=== PATIENT | female | born 1995 | race Caucasian/White ===

== ENCOUNTER → 2017-02-15 | Outpatient (CLI) | payer OTHER, BC ==
--- NOTE | 2017-02-15 17:03 | REP ---
Clinical: Trauma. Contusion. Technique: AP, lateral, bilateral oblique and sunrise views left knee . Findings: The osseous structures and joint spaces are intact and normal. There is no evidence for acute fracture or dislocation. No joint effusion is appreciated. Surrounding soft tissues are unremarkable. No subcutaneous emphysema or radiodense foreign body. Impression: No acute fracture or dislocation. Signed by Perry Oneal MD 02/15/2017 04:55 P
== END ==
LOC: M LRY 16:18
PROVIDERS: ATTEND Physician Assistant Medical
DX: S80.02XA Contusion of left knee, initial encounter (principal); X58.XXXA Exposure to other specified factors, initial encounter; Y93.9 Activity, unspecified; Y92.9 Unspecified place or not applicable; Y99.8 Other external cause status

== ENCOUNTER → 2017-07-03 | Outpatient (REF) | payer BC, OTHER | LOC: M SFHCLERA 20:03 | PROVIDERS: ATTEND Nurse Practitioner Family | DX: R42 Dizziness and giddiness (principal) ==

== ENCOUNTER → 2017-09-22 | Outpatient (REF) | payer BC ==
[2017-09-23 12:43] LABS: CHLAMYDIA DNA AMPLIFICATION POSITIVE (NEGATIVE); GC DNA AMPLIFICATION NEGATIVE (NEGATIVE)
== END ==
LOC: M SFHCLERA 20:19
DX: R10.9 Unspecified abdominal pain (principal)
CPT/HCPCS: 87086

== ENCOUNTER → 2018-02-25 | Outpatient (CLI) | payer BC ==
[2018-02-25 14:54] LABS: PROLACTIN 9.6 NG/ML
[2018-02-25 14:55] LABS: ESTIMATED AVERAGE GLUCOSE 77 MG/DL (60-110); HEMOGLOBIN A1c 4.3 %
[2018-02-25 19:15] LABS: ANION GAP 10 MEQ/L (8-16); BLOOD UREA NITROGEN 13 MG/DL (7-18); CALCIUM LEVEL 8.8 MG/DL (8.5-10.1); CARBON DIOXIDE LEVEL 25 MEQ/L (21-32); CHLORIDE LEVEL 107 MEQ/L (98-107); CREATININE FOR GFR 0.92 MG/DL (0.55-1.30); GLOMERULAR FILTRATION RATE > 60.0 (>60); GLUCOSE, FASTING 77 MG/DL (70-100); POTASSIUM SERUM 4.1 MEQ/L (3.5-5.1); SODIUM LEVEL 142 MEQ/L (136-145)
[2018-02-27 00:06] LABS: TESTOSTERONE FREE (DIRECT) 2.4 pg/mL (0.0-4.2)
== END ==
LOC: M RAD 11:50
DX: N92.1 Excessive and frequent menstruation with irregular cycle (principal); Z97.5 Presence of (intrauterine) contraceptive device
CPT/HCPCS: 76856

== ENCOUNTER → 2018-05-24 | Outpatient (REF) | payer BC | LOC: M SFHCLERA 19:33 | DX: J02.9 Acute pharyngitis, unspecified (principal) ==

== ENCOUNTER 2018-07-27 22:34 | Emergency (ER) | payer BC ==
[2018-07-27] MEDS: hydrOXYzine 25 MG TAB PO (23:26)
== END 2018-07-28 00:27 | disposition home or self-care (01) ==
LOC: M ED 22:34
DX: F43.0 Acute stress reaction (principal); F41.1 Generalized anxiety disorder; F41.0 Panic disorder [episodic paroxysmal anxiety]; Z72.0 Tobacco use; Z88.2 Allergy status to sulfonamides
CPT/HCPCS: 99284

== ENCOUNTER → 2018-08-19 | Outpatient (REF) | payer BC ==
[~2018-08-19] MED LIST: HYDR-3363 PO
== END ==
LOC: M SFHCLERA 14:02
PROVIDERS: ATTEND Physician Assistant
DX: J02.9 Acute pharyngitis, unspecified (principal)

== ENCOUNTER → 2018-09-26 | Outpatient (REF) | payer BC | LOC: M SFHCLERA 15:04 | PROVIDERS: ATTEND Nurse Practitioner Family | DX: J00 Acute nasopharyngitis [common cold] (principal) ==

== ENCOUNTER → 2018-09-29 | Outpatient (REF) | payer BC ==
[~2018-09-29] MED LIST changes: +BENZ200C70 PO; +IBUP-1022 PO; +ONDA4TAB6 PO
== END ==
LOC: M SFHCLERA 17:16
PROVIDERS: ATTEND Physician Assistant
DX: R35.0 Frequency of micturition (principal)

== ENCOUNTER 2018-10-01 10:13 | Emergency (ER) | payer BC ==
[~2018-10-01] VITALS: Ht 162.6 cm; Wt 106.8 kg
[~2018-10-01 10:13] MED LIST changes: -BENZ200C70 PO; -IBUP-1022 PO; -ONDA4TAB6 PO
[2018-10-01] MEDS ORDERED: ALBUTEROL SULFATE 2.5 MG/0.5 ML INH NEB SOLN INH ONE (12:00)
[2018-10-01] MEDS ORDERED: IBUP-1022 PO (13:15)
[2018-10-01] MEDS ORDERED: BENZ200C70 PO (13:15)
[2018-10-01] MEDS ORDERED: ONDA4TAB6 PO (13:15)
[2018-10-01 13:35] VITALS: BP 142/85
== END 2018-10-01 13:36 | disposition home or self-care (01) ==
LOC: M ED 10:13
DX: J11.1 Influenza due to unidentified influenza virus with other respiratory manifestations (principal); F17.200 Nicotine dependence, unspecified, uncomplicated; Z88.2 Allergy status to sulfonamides

== ENCOUNTER → 2018-11-18 | Outpatient (REF) | payer BC ==
[~2018-11-18] MED LIST changes: +BENZ200C70 PO; +IBUP-1022 PO; +ONDA4TAB6 PO
[2018-11-18 19:53] LABS: APPEARANCE, URINE CLEAR (CLEAR); BACTERIA, URINE AUTO NEGATIVE (NEGATIVE); BILIRUBIN, URINE AUTO NEGATIVE (NEGATIVE); BLOOD, URINE BLOOD NEGATIVE (NEGATIVE); COLOR, URINE YELLOW (YELLOW); GLUCOSE, URINE (UA) AUTO NEGATIVE (NEGATIVE); KETONE, URINE AUTO NEGATIVE (NEGATIVE); LEUKOCYTE ESTERASE, URINE AUTO TRACE (NEGATIVE); MUCUS, URINE SMALL (NEGATIVE); NITRITE, URINE AUTO NEGATIVE (NEGATIVE); PROTEIN, URINE AUTO NEGATIVE (NEGATIVE); RBC, URINE AUTO 2 /HPF (0-3); SQUAMOUS EPITHELIAL CELL UR AU 4 /HPF (0-6); UROBILINOGEN, URINE AUTO 0.2 mg/dL (0.0-2.0); WBC, URINE AUTO 1 /HPF (0-3)
== END ==
LOC: M SFHCPLAZ 17:05
PROVIDERS: ATTEND Physician Assistant Medical
DX: R30.0 Dysuria (principal)

== ENCOUNTER → 2018-12-06 | Outpatient (REF) | payer BC | LOC: M SFHCLERA 17:56 | PROVIDERS: ATTEND Nurse Practitioner Family | DX: J02.9 Acute pharyngitis, unspecified (principal) ==

== ENCOUNTER 2019-01-19 04:19 | Emergency (ER) | payer BC ==
[2019-01-19] MEDS ORDERED: BUPR1TAB52 PO (04:28)
[2019-01-19 05:04] VITALS: BP 131/85
--- NOTE | 2019-01-19 09:32 | REP ---
CHEST TWO VIEWS: There is no evidence of acute infiltrate. No pleural effusion is seen. The heart is normal in size. The mediastinal silhouette is unremarkable. The visualized osseous structures are intact. IMPRESSION: No acute pulmonary disease. Electronically Signed by Michael Arguelles MD 01/19/2019 04:38 P
== END 2019-01-19 06:09 | disposition home or self-care (01) ==
LOC: M ED 04:19
DX: F41.0 Panic disorder [episodic paroxysmal anxiety] (principal); J45.909 Unspecified asthma, uncomplicated; F41.9 Anxiety disorder, unspecified; Z72.0 Tobacco use; Z79.899 Other long term (current) drug therapy; Z88.2 Allergy status to sulfonamides

== ENCOUNTER → 2019-01-31 | Outpatient (REF) | payer BC ==
[~2019-01-31] MED LIST changes: +BUPR1TAB52 PO
[2019-01-31 16:03] LABS: FREE T4 1.08 NG/DL (0.76-1.46); THYROID STIMULATING HORMONE 1.2 uIU/ML (0.358-3.740)
[2019-01-31 16:18] LABS: TOTAL 25(OH) VITAMIN D 12.2 NG/ML (30.0-100.0)
== END ==
LOC: M SFHCPLAZ 14:21
PROVIDERS: ATTEND Family Medicine
DX: F41.8 Other specified anxiety disorders (principal)

== ENCOUNTER 2019-03-06 10:05 | Emergency (ER) | payer OTHER, BC ==
[~2019-03-06] VITALS: Ht 160 cm; Wt 109.1 kg
[2019-03-06] MEDS ORDERED: NEXP1IMP SC (10:13)
[2019-03-06] MEDS ORDERED: PROAAER10 INH (10:13)
[2019-03-06] MEDS ORDERED: IBUPROFEN 800 MG TAB PO ONE (11:15)
[2019-03-06 11:37] VITALS: BP 130/96
--- NOTE | 2019-03-08 15:40 | REP ---
Sternum two views: No sternal fracture is identified on plain films. If there is continuing clinical concern consider CT including sagittal reconstructions. Electronically Signed by Michael Moralez MD 03/06/2019 11:02 A
--- NOTE | 2019-03-08 15:40 | REP ---
Bilateral ribs four views: There is no rib fracture or other rib abnormality. PA chest: Comparison is 01/19/2019. There is no pneumothorax, hemothorax or pulmonary contusion. The lung cartwright are clear. Cardiac size is normal. The milagros, mediastinum, skeletal structures are unremarkable. Impression: Negative PA chest. There is no interval change. Electronically Signed by Michael Moralez MD 03/06/2019 11:04 A
== END 2019-03-06 11:42 | disposition home or self-care (01) ==
LOC: M ED 10:05
DX: S29.011A Strain of muscle and tendon of front wall of thorax, initial encounter (principal); W50.0XXA Accidental hit or strike by another person, initial encounter; Y93.F9 Activity, other caregiving; Y92.199 Unspecified place in other specified residential institution as the place of occurrence of the external cause; Y99.0 Civilian activity done for income or pay; K21.9 Gastro-esophageal reflux disease without esophagitis; J45.909 Unspecified asthma, uncomplicated; F41.0 Panic disorder [episodic paroxysmal anxiety]; F32.9 Major depressive disorder, single episode, unspecified; F17.210 Nicotine dependence, cigarettes, uncomplicated; Z97.5 Presence of (intrauterine) contraceptive device; Z88.2 Allergy status to sulfonamides; Z79.899 Other long term (current) drug therapy; Z79.51 Long term (current) use of inhaled steroids

== ENCOUNTER 2019-04-11 13:26 | Inpatient (IN) | payer BC, OTHER, SELFPAY ==
[~2019-04-11] VITALS: Ht 160 cm; Wt 110.6 kg
[~2019-04-11 13:26] MED LIST changes: +NEXP1IMP SC; +PROAAER10 INH
[2019-04-11] MEDS ORDERED: LORA0.5T11 PO (13:46)
[2019-04-11] MEDS ORDERED: DULO1CAP4 PO (13:46)
[2019-04-11] MEDS ORDERED: LORazepam 0.5 MG TAB PO STA (13:59)
[2019-04-11 14:03] LABS: MEAN CORPUSCULAR HEMOGLOBIN 30.4 pg (27.0-33.0); MEAN CORPUSCULAR HGB CONC 35.9 g/dl (32.0-36.5); MEAN CORPUSCULAR VOLUME 84.8 fl (80.0-96.0); PLATELET COUNT, AUTOMATED 279 10^3/uL (150-450)
[2019-04-11] MEDS ORDERED: LORA-674 PO (14:05)
[2019-04-11] MEDS ORDERED: ALBU8.5H (14:05)
[2019-04-11] MEDS ORDERED: VITA500045 PO (14:05)
[2019-04-11] MEDS ORDERED: OMEP-218 PO (14:05)
[2019-04-11 14:32] LABS: HCG, SERUM QUALITATIVE NEGATIVE (NEGATIVE)
[2019-04-11 14:36] LABS: ACETAMINOPHEN LEVEL < 2.0 UG/ML (10.0-30.0); ALBUMIN 3.7 GM/DL (3.2-5.2); ALT/SGPT 37 U/L (12-78); BILIRUBIN,DIRECT < 0.1 MG/DL (0.0-0.2); BILIRUBIN,TOTAL 0.3 MG/DL (0.2-1.0); BLOOD UREA NITROGEN 11 MG/DL (7-18); CALCIUM LEVEL 8.8 MG/DL (8.5-10.1); CARBON DIOXIDE LEVEL 25 MEQ/L (21-32); CHLORIDE LEVEL 107 MEQ/L (98-107); CREATININE FOR GFR 0.86 MG/DL (0.55-1.30); ETHYL ALCOHOL (ETHANOL) < 0.003 % (0.000-0.010); GLOMERULAR FILTRATION RATE > 60.0 (>60); GLUCOSE, FASTING 91 MG/DL (70-100); POTASSIUM SERUM 3.8 MEQ/L (3.5-5.1); SALICYLATE LEVEL < 1.7 MG/DL (5.0-30.0); SODIUM LEVEL 139 MEQ/L (136-145); TOTAL PROTEIN 7.2 GM/DL (6.4-8.2)
[2019-04-11 14:37] LABS: AMPHETAMINES LEVEL URINE NEGATIVE (NEGATIVE); BARBITURATES URINE NEGATIVE (NEGATIVE); BENZODIAZEPINES URINE NEGATIVE (NEGATIVE); CANNABINOIDS URINE NEGATIVE (NEGATIVE); COCAINE METABOLITE URINE NEGATIVE (NEGATIVE); METHADONE URINE NEGATIVE (NEGATIVE); OPIATES URINE NEGATIVE (NEGATIVE); PHENCYCLIDINE URINE NEGATIVE (NEGATIVE)
[2019-04-11] MEDS ORDERED: NICOTINE 21MG/24HR 1 EA TRANSDERMAL TD ONE (16:00)
[2019-04-11] MEDS ORDERED: LORazepam 0.5 MG TAB PO ONE (21:30)
[2019-04-12] MEDS ORDERED: LORazepam 0.5 MG TAB PO ONE ×2 (07:45→17:00)
[2019-04-12] MEDS ORDERED: IPRATROPIUM 0.5MG/ALBUTEROL 2.5MG INH SOL UD 3ML (DUONEB)(J7620) NEB ONE (08:45)
[2019-04-12] MEDS ORDERED: LORATADINE 10 MG TAB PO SCH (09:00)
[2019-04-12] MEDS ORDERED: OMEPRAZOLE 20 MG CAP PO ONE (09:30)
[2019-04-12] MEDS ORDERED: LORATADINE 10 MG TAB PO ONE (09:30)
[2019-04-12] MEDS ORDERED: DULoxetine 20 MG CAP (CYMBALTA) PO ONE (09:30)
[2019-04-12] MEDS ORDERED: RA A TOP (10:04)
[2019-04-12] MEDS ORDERED: ACNE1GEL2 TOP (10:04)
[2019-04-12] MEDS ORDERED: MOM 30ML SUSPENSION UDC PO PRN (11:00)
[2019-04-12] MEDS ORDERED: ACETAMINOPHEN TAB 650MG DOSE (2X325MG) PO PRN (11:00)
[2019-04-12] MEDS ORDERED: traZODone 50 MG TAB PO PRN (11:00)
[2019-04-12] MEDS ORDERED: MAALOX 30 ML SUSP *UDC PO PRN (11:00)
[2019-04-12 11:43] VITALS: BP 138/70
[2019-04-12] MEDS ORDERED: ALBUTEROL 90 MCG/ACT 8GM HFA INHALER INH PRN (14:45)
[2019-04-12] MEDS: NICOTINE 21MG/24HR 1 EA TRANSDERMAL TD SCH (15:23)
--- NOTE | 2019-04-12 15:29 | HPE ---
DATE OF ADMISSION: 04/12/2019 PRIMARY CARE PROVIDER: Yas Pathak CHIEF COMPLAINT: Depression. HISTORY OF PRESENTING ILLNESS: 23-year-old with history of allergic rhinitis and asthma, admitted to inpatient mental health unit for depression. She denies any shortness of breath, wheezing for the past few days. Patient has not been intubated in the past for her asthma, and uses her rescue inhalers. She has not had any symptoms for the past few months. No fever, chills, nausea, vomiting, changes in appetite. Denies any dysuria, urgency, frequency, diarrhea, abdominal pain, sore throat, changes in vision, decrease in appetite. All other systems otherwise negative, aside from depression. PAST MEDICAL HISTORY: Asthma. Seasonal allergies. Depression ALLERGIES: SULFA (causing anaphylaxis). PAST SURGICAL HISTORY: None. FAMILY HISTORY: Mother alive in her 40s with hypertension. One brother is healthy. Breast cancer on mother's side in a great aunt. Father, unknown medical problems. SOCIAL HISTORY: Drinks a beer every 2 months. One pack of cigarettes every 2 days for the past few years. No recreational drug use. Works at [employer]. REVIEW OF SYSTEMS: Per history of present illness (HPI), 12-point system otherwise negative. PHYSICAL EXAM: Temperature 98, pulse 75, respiratory 16, blood pressure 135/69, 98% on room air. LABORATORY DATA: On 04/11/2019, white count 10, hemoglobin 14, hematocrit 39, platelet count 279. Sodium 139, potassium 3.8, chloride 107, bicarbonate 25, BUN 11, creatinine 0.86, glucose 91, calcium 8.8, total bilirubin 0.3, direct bilirubin less than 0.1, AST 19, ALT 37, alkaline phosphatase 85, total protein 7.2, albumin 3.7, TSH 3.23. Negative hCG. Urine drug screen is negative. ASSESSMENT AND PLAN: 23 year old with asthma, seasonal allergies, admitted to inpatient mental health unit for severe depression under suicide and aggression precautions. CURRENT ISSUES: 1. Depression. Managed by psychiatrist. Patient received Cymbalta, currently on trazodone as needed for sleep and Tylenol for pain. 2. Asthma. Resume as needed DuoNebs. 3. Seasonal allergies. Continue on loratadine. MTDD
[2019-04-13 07:00] VITALS: BP 140/83
[2019-04-13 07:31] LABS: CHOLESTEROL RISK RATIO 4.068 (<5); THYROID STIMULATING HORMONE 1.04 uIU/ML (0.358-3.740)
[2019-04-13] MEDS ORDERED: LORATADINE 10 MG TAB PO SCH (09:00)
[2019-04-13] MEDS: NICOTINE 21MG/24HR 1 EA TRANSDERMAL TD SCH (09:40)
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
[2019-04-13] MEDS ORDERED: NICO21PAT TD (12:15)
--- NOTE | 2019-04-13 16:41 | ECGEPIP ---
[facility] - ED Test Date: 2019-04-11 Pat Name: RONALD GAMEZ Department: Room: - Gender: Female Code Inspector: alida : 1995 Requested By: Vince Humphreys Order Number: [id number] Reading MD: Beth Hudson Measurements Intervals [place] Rate: 87 P: 56 MI: 154 QRS: 75 QRSD: 89 T: 3 QT: 339 QTc: 409 Interpretive Statements SINUS RHYTHM WITH SINUS ARRHYTHMIA NONSPECIFIC T-WAVE ABNORMALITY SIMILAR 06/03/16 Electronically Signed on 04-13-2019 16:41:07 EDT by Beth Hudson
== END 2019-04-13 16:15 | disposition home or self-care (01) | DRG 756 ==
LOC: M ED 13:26 → M ED INP 04-12 10:55 → M PSY 04-12 13:43
PROVIDERS: ADMIT Psychiatry & Neurology Addiction Medicine; ATTEND Psychiatry & Neurology Addiction Medicine
DX: F41.9 Anxiety disorder, unspecified (principal); F43.8 Other reactions to severe stress; Z72.820 Sleep deprivation; Z79.899 Other long term (current) drug therapy; Z88.2 Allergy status to sulfonamides; J45.909 Unspecified asthma, uncomplicated

== ENCOUNTER → 2019-06-29 | Outpatient (REF) | payer BC ==
[~2019-06-29] MED LIST changes: +ACNE1GEL2 TOP; +ALBU8.5H; +DULO1CAP4 PO; +LORA-674 PO; +LORA0.5T11 PO; +NICO21PAT TD; +OMEP-218 PO; +RA A TOP; +VITA500045 PO
== END ==
LOC: M SFHCLERA 18:14
PROVIDERS: ATTEND Nurse Practitioner Family
DX: J02.9 Acute pharyngitis, unspecified (principal)

== ENCOUNTER → 2019-06-29 | Outpatient (CLI) | payer BC ==
--- NOTE | 2019-06-29 18:30 | REP ---
Two-view chest: 06/29/2019. Indication: Dyspnea. Comparison: 03/06/2019. Findings: The lungs are clear. There is no pleural effusion or pneumothorax. The cardiomediastinal silhouette is unremarkable. Impression: No acute cardiopulmonary process. Electronically Signed by Chay Foley DO 06/29/2019 06:22 P
== END ==
LOC: M LRY 17:54
PROVIDERS: ATTEND Nurse Practitioner Family
DX: R06.02 Shortness of breath (principal)

== ENCOUNTER → 2019-07-19 | Outpatient (CLI) | payer BC ==
--- NOTE | 2019-07-19 15:44 | REP ---
Left lower extremity Duplex Doppler venous ultrasound: Real time compression and duplex Doppler interrogation of the left lower extremity deep venous system is performed. The left common femoral, superficial femoral and popliteal veins are fully compressible with transducer pressure and demonstrate normal spontaneous and phasic flow, without evidence of deep venous thrombosis. Impression: No evidence of deep venous thrombosis of the left lower extremity femoral popliteal venous system. Electronically Signed by Michael Arguelles MD 07/19/2019 03:35 P
== END ==
LOC: M LRY 14:38
PROVIDERS: ATTEND Physician Assistant Medical
DX: M25.562 Pain in left knee (principal)

== ENCOUNTER → 2019-08-13 | Outpatient (CLI) | payer BC ==
--- NOTE | 2019-08-13 17:17 | REP ---
KUB: Two views. History: Upper abdominal pain. Findings: Bowel gas pattern is normal. Psoas margins and flank stripes are intact. No mass, organomegaly, or pathologic calcification is seen. Impression: Negative KUB. Electronically Signed by Rancho Strong MD 08/13/2019 05:08 P
== END ==
LOC: M LRY 16:49
PROVIDERS: ATTEND Physician Assistant
DX: R10.13 Epigastric pain (principal)

== ENCOUNTER → 2019-09-06 | Outpatient (REF) | payer BC ==
[~2019-09-06] MED LIST changes: -LORA0.5T11 PO; +LORA0.5T5 PO
== END ==
LOC: M SFHCLERA 21:05
PROVIDERS: ATTEND Physician Assistant
DX: R50.9 Fever, unspecified (principal)

== ENCOUNTER → 2019-11-11 | Outpatient (REF) | payer SELFPAY | LOC: M SFHCPLAZ 19:04 | PROVIDERS: ATTEND Physician Assistant | DX: J02.9 Acute pharyngitis, unspecified (principal) ==

== ENCOUNTER → 2019-11-15 | Outpatient (CLI) | payer OTHER | LOC: M LABSMTC 13:56 | PROVIDERS: ATTEND Family Medicine | DX: Z11.59 Encounter for screening for other viral diseases (principal); Z20.828 Contact with and (suspected) exposure to other viral communicable diseases ==

== ENCOUNTER 2020-06-16 19:52 | Emergency (ER) | payer OTHER, SELFPAY ==
[~2020-06-16] VITALS: Ht 160 cm; Wt 116.4 kg
[2020-06-16] MEDS ORDERED: AMOX875T2 PO (20:32)
[2020-06-16] MEDS ORDERED: IBUP200T45 PO (20:32)
[2020-06-16] MEDS ORDERED: OFLOSO (20:32)
[2020-06-16] MEDS ORDERED: APAP325T4 PO (20:32)
[2020-06-16] MEDS ORDERED: ALBUTEROL SULFATE 2.5 MG/0.5 ML INH NEB SOLN INH PRN (21:15)
[2020-06-16] MEDS ORDERED: ALBUTEROL 90 MCG/ACT 8GM HFA INHALER INH SCH (21:15)
[2020-06-16] MEDS ORDERED: methylPREDNISolone 125MG 2ML VIAL IV ONE (21:15)
[2020-06-16 22:03] LABS: VENOUS PH 7.366 UNITS (7.330-7.430)
[2020-06-16 22:04] LABS: VENOUS BASE EXCESS 0.2 (-2.0-2.0); VENOUS O2 SATURATION 51.2 % (60.0-80.0); VENOUS PARTIAL PRESSURE CO2 46.5 mmHg (38.0-50.0); VENOUS PARTIAL PRESSURE O2 27.4 mmHg (30.0-50.0); VENOUS STANDARD HCO3 23.6 MEQ/L; VENOUS TOTAL CO2 27.5 MEQ/L (24.0-28.0)
[2020-06-16 22:08] LABS: BASO % 0.4 % (0.0-1.0); EOS # 0.1 10^3/uL (0.0-0.5); HEMATOCRIT 38.6 % (36.0-47.0); HEMOGLOBIN 12.8 g/dl (12.0-15.5); LYMPH # 3.1 10^3/uL (1.5-5.0); LYMPH % 30.6 % (24.0-44.0); MEAN CORPUSCULAR HEMOGLOBIN 28.9 pg (27.0-33.0); MEAN CORPUSCULAR HGB CONC 33.2 g/dl (32.0-36.5); MEAN CORPUSCULAR VOLUME 87.1 fl (80.0-96.0); MONO # 0.6 10^3/uL (0.0-0.8); NEUTROPHILS # 6.2 10^3/uL (1.5-8.5); NEUTROPHILS % 61.6 % (36.0-66.0); PLATELET COUNT, AUTOMATED 291 10^3/uL (150-450); RED BLOOD COUNT 4.43 10^6/uL (4.00-5.40)
[2020-06-16 22:28] LABS: ERYTHROCYTE SEDIMENTATION RATE 29 mm/hr (0-20)
[2020-06-16 22:33] LABS: C REACTIVE PROTEIN QUANTITATIV 0.63 MG/DL (0.00-0.30); CK-MB VALUE MASS < 1.0 NG/ML (<3.6); CPK CREATINE PHOSPHOKINASE 73 U/L (26-192); MB/CK RELATIVE INDEX 1.37 (< OR =4); NT-PRO BNP 55 PG/ML (<125); TROPONIN I < 0.02 NG/ML (< 0.10)
[2020-06-16] MEDS ORDERED: ISOVUE-370 76% 100ML VIAL As Ordered ONE (23:07)
--- NOTE | 2020-06-17 00:01 | REPVR ---
PROCEDURE INFORMATION: Exam: XR Chest, 1 View Exam date and time: 06/16/2020 10:45 PM Age: 24 years old Clinical indication: Other: SOB, cp TECHNIQUE: Imaging protocol: XR of the chest Views: 1 view. COMPARISON: CR Ribs Bilat w-PA CHEST 03/06/2019 10:48 AM FINDINGS: Lungs: Unremarkable. No consolidation. Pleural space: Unremarkable. No pleural effusion. No pneumothorax. Heart/Mediastinum: Unremarkable. No cardiomegaly. Bones/joints: Unremarkable. IMPRESSION: No acute findings. Electronically signed by: Padmini Connor On 06/17/2020 00:00:32 AM
--- NOTE | 2020-06-17 00:26 | REPVR ---
PROCEDURE INFORMATION: Exam: CT Angiography Chest With Contrast Exam date and time: 06/16/2020 12:06 AM Age: 24 years old Clinical indication: Shortness of breath; Chest pain; Additional info: SOB, cp, elev d dimer TECHNIQUE: Imaging protocol: Computed tomographic angiography of the chest with intravenous contrast. 3D rendering (Not supervised by radiologist): MIP and/or 3D reconstructed images were created by the technologist. Radiation optimization: All CT scans at this facility use at least one of these dose optimization techniques: automated exposure control; mA and/or kV adjustment per patient size (includes targeted exams where dose is matched to clinical indication); or iterative reconstruction. Contrast material: ISOVUE 370; Contrast volume: 75 ml; Contrast route: INTRAVENOUS (IV); COMPARISON: CR PORTABLE CHEST X-RAY 06/16/2020 10:32 PM FINDINGS: Pulmonary arteries: No filling defect to suggest pulmonary embolism. Aorta: Unremarkable. No aortic aneurysm. No aortic dissection. Lungs: Minimal bilateral increased interstitial markings appears to be dependent edema. No focal density. Low lung volumes. Pleural space: Unremarkable. No pneumothorax. No pleural effusion. Heart: Unremarkable. No cardiomegaly. No pericardial effusion. Mediastinal space: Density in the anterior mediastinum likely residual thymus. Lymph nodes: Unremarkable. No enlarged lymph nodes. Bones/joints: Unremarkable. No acute fracture. Soft tissues: Unremarkable. IMPRESSION: Minimal bilateral increased interstitial markings appears to be dependent edema. No focal density. Low lung volumes. Electronically signed by: Padmini Connor On 06/17/2020 00:26:01 AM
[2020-06-17] MEDS ORDERED: PRED20TA PO (00:56)
[2020-06-17 01:08] VITALS: BP 144/89
--- NOTE | 2020-06-17 05:42 | ECGEPIP ---
[facility] - ED Test Date: 2020-06-16 Pat Name: RONALD GAMEZ Department: Room: - Gender: Female Scale Installer: : 1995 Requested By: STEPHANIE Rich Order Number: [id number] Reading MD: Javier Peterson Measurements Intervals [place] Rate: 108 P: 48 IN: 124 QRS: 81 QRSD: 91 T: -11 QT: 322 QTc: 433 Interpretive Statements SINUS TACHYCARDIA POSSIBLE LEFT ATRIAL ENLARGEMENT NONSPECIFIC T-WAVE ABNORMALITY RATE CHANGE COMPARED TO 04/11/19 Electronically Signed on 06-17-2020 5:41:55 EST by Javier Peterson
== END 2020-06-17 01:16 | disposition home or self-care (01) ==
LOC: M ED 19:52
DX: J45.901 Unspecified asthma with (acute) exacerbation (principal); F17.200 Nicotine dependence, unspecified, uncomplicated; Z79.3 Long term (current) use of hormonal contraceptives; Z79.2 Long term (current) use of antibiotics; Z83.2 Family history of diseases of the blood and blood-forming organs and certain disorders involving the immune mechanism; Z82.49 Family history of ischemic heart disease and other diseases of the circulatory system; Z88.2 Allergy status to sulfonamides
CPT/HCPCS: 71045; 71275; 80047; 82550; 82553; 82803; 83880; 84484; 85025; 85379; 85652; 86140; 87486; 87581; 87633; 87798; 87880; 93005; 93041; 94640; 94760; 96374; 99285; J2930; Q9967

== ENCOUNTER 2021-04-24 15:36 | Emergency (ER) | payer OTHER ==
[~2021-04-24] VITALS: Ht 160 cm; Wt 113.7 kg
[2021-04-24 15:36] VITALS: BP 146/85
[~2021-04-24 15:36] MED LIST changes: +AMOX875T2 PO; +APAP325T4 PO; +IBUP200T45 PO; +OFLOSO; +PRED20TA PO
[2021-04-24] MEDS ORDERED: LITH150C (15:45)
== END 2021-04-24 16:16 | disposition left against medical advice (07) ==
LOC: M ED 15:36
DX: Z53.21 Procedure and treatment not carried out due to patient leaving prior to being seen by health care provider (principal)

== ENCOUNTER 2021-07-22 10:54 | Emergency (ER) | payer OTHER ==
[~2021-07-22] VITALS: Ht 162.6 cm; Wt 115.6 kg
[~2021-07-22 10:54] MED LIST changes: -IBUP200T45 PO; +IBUP200T46 PO; +LITH150C; +OMEP-173 PO; -OMEP-218 PO
[2021-07-22] MEDS ORDERED: METF10004 (11:18)
[2021-07-22] MEDS ORDERED: MUCI600T31 (11:18)
[2021-07-22] MEDS ORDERED: BUPR15TA (11:18)
[2021-07-22] MEDS ORDERED: NAPR-885 (11:18)
[2021-07-22] MEDS ORDERED: SPIR50TA4 (11:18)
[2021-07-22] MEDS ORDERED: ALBU83IN (11:18)
[2021-07-22 13:02] VITALS: O2SAT 96
[2021-07-22 14:58] VITALS: BP 140/81
[2021-07-22] MEDS ORDERED: COMBIVENT RESPIMAT 100-20MCG INHALER 4GM INH ONE (15:00)
== END 2021-07-22 15:52 | disposition home or self-care (01) ==
LOC: M ED 10:54
DX: U07.1 COVID-19 (principal); J45.909 Unspecified asthma, uncomplicated; F17.290 Nicotine dependence, other tobacco product, uncomplicated; Z79.899 Other long term (current) drug therapy; Z88.2 Allergy status to sulfonamides
CPT/HCPCS: 71045; 93005; 94640; 99284; M0245

== ENCOUNTER 2021-07-22 15:14 | Outpatient (CLI) | payer OTHER ==
[~2021-07-22 15:14] MED LIST changes: +ALBU83IN; +ALBUTEROL 90 MCG/ACT 8GM HFA INHALER INH PRN; +ALBUTEROL SULFATE 2.5 MG/0.5 ML INH NEB SOLN INH PRN; +BUPR15TA; +EPINEPHrine INJ 1 MG/ML 1ML AMP IM PRN; +METF10004; +MUCI600T31; +NAPR-885; +SPIR50TA4; +diphenhydrAMINE 50MG/ML VIAL (J1200) IV PRN; +methylPREDNISolone 125MG 2ML VIAL IV PRN
[2021-07-22 15:53] VITALS: BP 138/73
[2021-07-22] MEDS ORDERED: BAMLANIVIMAB 700 MG, ETESEVIMAB 1,400 MG in NS 250 ML IV ONE (16:00)
[2021-07-22 16:23] VITALS: BP 135/70
[2021-07-22 16:53] VITALS: BP 155/91
[2021-07-22 17:53] VITALS: BP 126/76
== END 2021-07-22 17:53 | disposition home or self-care (01) ==
LOC: M OPCLI4PR 15:14
PROVIDERS: ATTEND Internal Medicine
DX: U07.1 COVID-19 (principal); Z88.2 Allergy status to sulfonamides

== ENCOUNTER → 2021-10-29 | Outpatient (CLI) | payer OTHER ==
[~2021-10-29] MED LIST changes: -ALBUTEROL 90 MCG/ACT 8GM HFA INHALER INH PRN; -ALBUTEROL SULFATE 2.5 MG/0.5 ML INH NEB SOLN INH PRN; -EPINEPHrine INJ 1 MG/ML 1ML AMP IM PRN; -diphenhydrAMINE 50MG/ML VIAL (J1200) IV PRN; -methylPREDNISolone 125MG 2ML VIAL IV PRN
== END ==
LOC: M RAD 13:38
PROVIDERS: ATTEND Internal Medicine Pulmonary Disease
DX: R07.1 Chest pain on breathing (principal); R06.00 Dyspnea, unspecified

== ENCOUNTER 2022-01-03 16:58 | Emergency (ER) | payer OTHER ==
[~2022-01-03] VITALS: Ht 160 cm; Wt 116.4 kg
[~2022-01-03 16:58] MED LIST changes: +ALBU2.5V10; -ALBU83IN
[2022-01-03 17:54] LABS: HEMATOCRIT 39.2 % (36.0-47.0); HEMOGLOBIN 13.4 g/dl (12.0-15.5); MEAN CORPUSCULAR HEMOGLOBIN 28.9 pg (27.0-33.0); MEAN CORPUSCULAR HGB CONC 34.2 g/dl (32.0-36.5); MEAN CORPUSCULAR VOLUME 84.7 fl (80.0-96.0); PLATELET COUNT, AUTOMATED 294 10^3/uL (150-450); RED BLOOD COUNT 4.63 10^6/uL (4.00-5.40); WHITE BLOOD COUNT 10.3 10^3/uL (4.0-10.0)
[2022-01-03 18:22] LABS: HCG, SERUM QUALITATIVE NEGATIVE (NEGATIVE)
[2022-01-03 18:29] LABS: ACETAMINOPHEN LEVEL < 2.0 UG/ML (10.0-30.0); ALBUMIN 3.8 GM/DL (3.2-5.2); ALT/SGPT 31 U/L (12-78); BILIRUBIN,DIRECT < 0.1 MG/DL (0.0-0.2); BILIRUBIN,TOTAL 0.2 MG/DL (0.2-1.0); BLOOD UREA NITROGEN 12 MG/DL (7-18); CALCIUM LEVEL 9.7 MG/DL (8.5-10.1); CARBON DIOXIDE LEVEL 26 MEQ/L (21-32); CHLORIDE LEVEL 108 MEQ/L (98-107); CREATININE FOR GFR 1.08 MG/DL (0.55-1.30); ETHYL ALCOHOL (ETHANOL) < 0.003 % (0.000-0.010); GLOMERULAR FILTRATION RATE > 60.0 (>60); GLUCOSE, FASTING 100 MG/DL (70-100); POTASSIUM SERUM 4.4 MEQ/L (3.5-5.1); SALICYLATE LEVEL < 1.7 MG/DL (5.0-30.0); SODIUM LEVEL 141 MEQ/L (136-145); TOTAL PROTEIN 7.9 GM/DL (6.4-8.2)
[2022-01-03 18:32] LABS: AMPHETAMINES LEVEL URINE NEGATIVE (NEGATIVE); BARBITURATES URINE NEGATIVE (NEGATIVE); BENZODIAZEPINES URINE NEGATIVE (NEGATIVE); CANNABINOIDS URINE NEGATIVE (NEGATIVE); COCAINE METABOLITE URINE NEGATIVE (NEGATIVE); METHADONE URINE NEGATIVE (NEGATIVE); OPIATES URINE NEGATIVE (NEGATIVE); PHENCYCLIDINE URINE NEGATIVE (NEGATIVE)
[2022-01-03 19:24] LABS: LITHIUM LEVEL < 0.20 MEQ/L (0.60-1.20)
[2022-01-03 20:00] LABS: RSV AMPLIFICATION NEGATIVE (NEGATIVE)
[2022-01-03 23:08] VITALS: BP 161/102
== END 2022-01-03 23:00 | disposition home or self-care (01) ==
LOC: M ED 16:58
DX: Z04.6 Encounter for general psychiatric examination, requested by authority (principal); F43.0 Acute stress reaction; F60.3 Borderline personality disorder; E11.9 Type 2 diabetes mellitus without complications; J45.909 Unspecified asthma, uncomplicated; Z79.84 Long term (current) use of oral hypoglycemic drugs; Z79.899 Other long term (current) drug therapy; Z88.2 Allergy status to sulfonamides

== ENCOUNTER → 2022-04-30 | Outpatient (REF) | payer OTHER ==
[~2022-04-30] MED LIST changes: +ETON68IM SC; -NEXP1IMP SC
== END ==
LOC: M WUC 20:46
PROVIDERS: ATTEND Student in an Organized Health Care Education/Training Program
DX: J06.9 Acute upper respiratory infection, unspecified (principal)

== ENCOUNTER 2022-05-16 23:31 | Emergency (ER) | payer OTHER ==
[~2022-05-16] VITALS: Ht 160 cm; Wt 115.0 kg
[2022-05-17 03:55] LABS: HEMATOCRIT 39.7 % (36.0-47.0); HEMOGLOBIN 13.4 g/dl (12.0-15.5); MEAN CORPUSCULAR HEMOGLOBIN 29.6 pg (27.0-33.0); MEAN CORPUSCULAR HGB CONC 33.8 g/dl (32.0-36.5); MEAN CORPUSCULAR VOLUME 87.8 fl (80.0-96.0); PLATELET COUNT, AUTOMATED 354 10^3/uL (150-450); RED BLOOD COUNT 4.52 10^6/uL (4.00-5.40); WHITE BLOOD COUNT 10.9 10^3/uL (4.0-10.0)
[2022-05-17 04:09] VITALS: BP 129/81
[2022-05-17 04:18] LABS: ACETAMINOPHEN LEVEL < 2.0 UG/ML (10.0-30.0); ALBUMIN 3.7 GM/DL (3.2-5.2); ALT/SGPT 36 U/L (12-78); BILIRUBIN,DIRECT < 0.1 MG/DL (0.0-0.2); BILIRUBIN,TOTAL 0.3 MG/DL (0.2-1.0); BLOOD UREA NITROGEN 14 MG/DL (7-18); CALCIUM LEVEL 9.6 MG/DL (8.5-10.1); CARBON DIOXIDE LEVEL 28 MEQ/L (21-32); CHLORIDE LEVEL 108 MEQ/L (98-107); CREATININE FOR GFR 0.99 MG/DL (0.55-1.30); ETHYL ALCOHOL (ETHANOL) < 0.003 % (0.000-0.010); GLOMERULAR FILTRATION RATE > 60.0 (>60); GLUCOSE, FASTING 97 MG/DL (70-100); SALICYLATE LEVEL < 1.7 MG/DL (5.0-30.0); SODIUM LEVEL 141 MEQ/L (136-145); TOTAL PROTEIN 7.6 GM/DL (6.4-8.2)
[2022-05-17 04:43] LABS: HCG, SERUM QUALITATIVE NEGATIVE (NEGATIVE)
[2022-05-17 05:03] LABS: AMPHETAMINES LEVEL URINE NEGATIVE (NEGATIVE); BARBITURATES URINE NEGATIVE (NEGATIVE); BENZODIAZEPINES URINE NEGATIVE (NEGATIVE); CANNABINOIDS URINE NEGATIVE (NEGATIVE); COCAINE METABOLITE URINE NEGATIVE (NEGATIVE); METHADONE URINE NEGATIVE (NEGATIVE); OPIATES URINE NEGATIVE (NEGATIVE); PHENCYCLIDINE URINE NEGATIVE (NEGATIVE)
== END 2022-05-17 07:36 | disposition home or self-care (01) ==
LOC: M ED 23:31
DX: F43.0 Acute stress reaction (principal); F41.0 Panic disorder [episodic paroxysmal anxiety]; F32.9 Major depressive disorder, single episode, unspecified; F60.3 Borderline personality disorder; Z79.899 Other long term (current) drug therapy; Z88.2 Allergy status to sulfonamides

== ENCOUNTER 2022-08-16 14:16 | Emergency (ER) | payer OTHER ==
[~2022-08-16] VITALS: Ht 162.6 cm; Wt 118.2 kg
[~2022-08-16 14:16] MED LIST changes: +RALTEGRAVIR 400 MG TAB (ISENTRESS) PO SCH; +TRUVADA 200MG/300MG TABLET PO SCH
[2022-08-16 15:16] LABS: BASO # 0.1 10^3/uL (0.0-0.2); BASO % 0.8 % (0.0-1.0); EOS # 0.1 10^3/uL (0.0-0.5); EOS % 0.6 % (0.0-3.0); HEMATOCRIT 37.6 % (36.0-47.0); LYMPH # 3.8 10^3/uL (1.5-5.0); LYMPH % 41.3 % (24.0-44.0); MEAN CORPUSCULAR HEMOGLOBIN 29.6 pg (27.0-33.0); MEAN CORPUSCULAR HGB CONC 34.6 g/dl (32.0-36.5); MEAN CORPUSCULAR VOLUME 85.6 fl (80.0-96.0); MONO # 0.5 10^3/uL (0.0-0.8); MONO % 5.7 % (2.0-8.0); NEUTROPHILS # 4.8 10^3/uL (1.5-8.5); NEUTROPHILS % 51.3 % (36.0-66.0); PLATELET COUNT, AUTOMATED 293 10^3/uL (150-450); RED BLOOD COUNT 4.39 10^6/uL (4.00-5.40); WHITE BLOOD COUNT 9.3 10^3/uL (4.0-10.0)
[2022-08-16 15:44] LABS: ALBUMIN 3.9 G/DL (3.2-5.2); ALKALINE PHOSPHATASE 97 U/L (46-116); ALT/SGPT 22 U/L (7.0-40); AST/SGOT 17 U/L (<34); BILIRUBIN,TOTAL 0.4 MG/DL (0.3-1.2); BLOOD UREA NITROGEN 17 MG/DL (9-23); CALCIUM LEVEL 9.9 MG/DL (8.5-10.1); CARBON DIOXIDE LEVEL 27 MMOL/L (20-31); CHLORIDE LEVEL 103 MMOL/L (98-107); CREATININE FOR GFR 0.85 MG/DL (0.55-1.30); GLOMERULAR FILTRATION RATE > 60.0 (>60); GLUCOSE, FASTING 103 MG/DL (60-100); SODIUM LEVEL 140 MMOL/L (136-145); TOTAL PROTEIN 7.4 G/DL (5.7-8.2)
[2022-08-16 15:52] LABS: HEPATITIS B SURFACE ANTIBODY NEGATIVE (POSITIVE)
[2022-08-16 16:05] LABS: HEPATITIS B SURFACE ANTIGEN NEGATIVE (NEGATIVE)
[2022-08-16 16:09] LABS: HCG, SERUM QUALITATIVE NEGATIVE (NEGATIVE)
[2022-08-16] MEDS ORDERED: DOXY100C81 PO ×2 (16:12→17:09)
[2022-08-16] MEDS ORDERED: EMTR1TAB16 PO ×2 (16:12→17:09)
[2022-08-16] MEDS ORDERED: RALT40TA PO ×2 (16:12→17:09)
[2022-08-16] MEDS ORDERED: metroNIDAZOLE (FLAGYL) 500MG TABLET PO ONE (16:15)
[2022-08-16] MEDS ORDERED: ULIPRISTAL ACETATE 30MG TAB (ELLA) PO ONE (16:15)
[2022-08-16] MEDS ORDERED: cefTRIAXone 500MG VIAL IM ONE (16:15)
[2022-08-16] MEDS ORDERED: EXPOSURE KIT-ADULT 7 DAY SUPPLY PO ONE (16:15)
[2022-08-16] MEDS ORDERED: DOXYCYCLINE HYCLATE 100MG TABLET PO ONE (16:15)
[2022-08-16] MEDS ORDERED: LIDOCAINE 1% SDV 5ML VIAL DILUENT ONE (16:15)
[2022-08-16 16:17] LABS: HIV 1&2 SCREEN CENTAUR NEGATIVE (NEGATIVE)
[2022-08-16 16:24] LABS: HEPATITIS C VIRUS ABY INDEX 0.1 INDEX (<0.8)
[2022-08-16] MEDS ORDERED: RALTEGRAVIR 400 MG TAB (ISENTRESS) PO ONE (17:00)
[2022-08-16] MEDS ORDERED: TRUVADA 200MG/300MG TABLET PO ONE (17:00)
[2022-08-16 17:06] VITALS: BP 159/92
== END 2022-08-16 17:15 | disposition home or self-care (01) ==
LOC: M ED 15:35
DX: T76.21XA Adult sexual abuse, suspected, initial encounter (principal); Y92.099 Unspecified place in other non-institutional residence as the place of occurrence of the external cause; Z79.899 Other long term (current) drug therapy; Z88.2 Allergy status to sulfonamides

== ENCOUNTER → 2023-01-28 | Outpatient (CLI) | payer OTHER ==
[~2023-01-28] MED LIST changes: +DOXY100C82 PO; +EMTR1TAB16 PO; +RALT40TA PO; -RALTEGRAVIR 400 MG TAB (ISENTRESS) PO SCH; -TRUVADA 200MG/300MG TABLET PO SCH
== END ==
LOC: M WHC 11:28
PROVIDERS: ATTEND Physician Assistant
DX: N63.42 Unspecified lump in left breast, subareolar (principal); Z80.3 Family history of malignant neoplasm of breast

== ENCOUNTER → 2023-02-05 | Outpatient (CLI) | payer OTHER, SELFPAY ==
[~2023-02-05] MED LIST changes: +**SFHN** LIDOCAINE 1% MDV 20ML VIAL ONE; +**SFHN** SODIUM BICARBONATE 8.4% 10MEQ 10ML VIAL ONE
[2023-02-05 14:16] VITALS: TEMP 97.2
[2023-02-05 14:49] VITALS: BP 142/92; O2SAT 98
== END ==
LOC: M WHCPRO 14:01
PROVIDERS: ATTEND Physician Assistant
DX: N63.42 Unspecified lump in left breast, subareolar (principal)